=== PATIENT | female | born 1980 | race Caucasian/White ===

== ENCOUNTER 2018-03-17 09:30 | Outpatient (CLI) | payer OTHER ==
--- NOTE | 2018-03-17 11:12 | RAD ---
LUMBAR SPINE SIX VIEWS: 03/17/2018 HISTORY: Bilateral lower back pain with worsening recently. History of prior low back surgery. COMPARISON: No prior studies are available for comparison. FINDINGS: There are five [id number] lumbar type vertebral bodies. The vertebral body heights are within n ormal limits. However, there is loss of vertebral disk height at the L3-L4, L4-L5, and L5-S1 levels, with osteophytes seen anteriorly at these levels, as well as at the T12-L1 level. No fracture or jones bluxation is seen. There is straightening of the normal lumbar curvature. No abnormal translational motion is seen between the flexion and extension views of the lumbar spine. A T-shaped intrauterine contraceptive device is noted within the central pelvis. IMPRESSION: Multilevel degenerative changes of the lumbar spine. No fracture or subluxation is seen. POS: [facility]
== END 2018-03-17 09:31 | disposition home or self-care (01) ==
LOC: SCSRAD 09:30
PROVIDERS: ATTEND Family Medicine
DX: M54.5 Low back pain (principal); M47.896 Other spondylosis, lumbar region
CPT/HCPCS: 72100

== ENCOUNTER 2018-05-07 08:15 | Outpatient (CLI) | payer OTHER | END 2018-05-07 08:16 | disposition home or self-care (01) | LOC: CTENTCT 08:15 | PROVIDERS: ATTEND Specialist | DX: J01.00 Acute maxillary sinusitis, unspecified (principal) | CPT/HCPCS: 70486 ==

== ENCOUNTER 2018-05-20 12:51 | Day surgery (SDC) | payer OTHER ==
[2018-05-19 13:39] VITALS: BMI 38.4
[2018-05-20] MEDS ORDERED: Oxymetazoline HCl 0.05% ( 15 ML ) ONE ×2 (13:50→14:38)
[2018-05-20] MEDS ORDERED: Dexamethasone 20 MG/5 ML VIAL ONE (13:56)
[2018-05-20] MEDS ORDERED: Ondansetron PF 4 MG/2 ML Vial ONE (13:56)
[2018-05-20] MEDS ORDERED: PROPOFOL 200 MG/20 ML VIAL ONE (13:56)
[2018-05-20] MEDS ORDERED: Glycopyrrolate 0.2 MG/ML 5 ML SYRINGE ONE (13:56)
[2018-05-20] MEDS ORDERED: Midazolam HCl 2 mg/2 ml Vial ONE ×2 (13:57→14:43)
[2018-05-20 14:01] LABS: BHCG - Serum Negative (NEGATIVE); Pregs Control Background? CLEAR/WHITE (CLR/WHITE); Pregs Control Bar Appear? YES (CONTROL BAR)
[2018-05-20] MEDS ORDERED: Bacitracin Zinc Ointment 30 gm TUBE ONE (14:38)
[2018-05-20] MEDS ORDERED: Lidocaine 1% w/Epinephrine 1:100K 30 ML VIAL ONE (14:38)
[2018-05-20] MEDS ORDERED: Fentanyl 100 MCG/2 ML VIAL ONE ×2 (14:43→16:28)
[2018-05-20] MEDS ORDERED: Promethazine HCl 25 MG/ML VIAL ONE (16:57)
[2018-05-20] MEDS ORDERED: Sodium Chloride 0.9% 10 ML ONE (17:44)
--- NOTE | 2018-05-21 09:34 | OP ---
DATE OF PROCEDURE: 05/20/2018 SURGEON: Uriah Scott M.D. PREOPERATIVE DIAGNOSIS: Deviated septum, chronic sinusitis, hypertrophic inferior turbinates, facial pain. POSTOPERATIVE DIAGNOSIS: Deviated septum, chronic sinusitis, hypertrophic inferior turbinates, facia l pain. PROCEDURES: 1. Nasal endoscopy with frontal sinusotomy. 2. Bilateral nasal endoscopy with total ethmoidectomy. 3. Bilateral nasal endoscopy with maxillary antrostomy with removal of tissue. 4. Bilateral nasal endoscopy with sphenoidotomy. 5. Septoplasty and bilateral nasal endoscopy with submucosal resection of inferior turbinates. FINDINGS: Passage is very narrow in the left frontal region and a balloon was used to help facilitat e the dilatation and with frontal sinusotomy. PROCEDURE IN DETAIL: After consent was obtained, the patient was identified, brought to the operatin g room, and placed on the operating room table in the supine position. Consent was obtained, notifyi ng the patient of the possibility of additional infections, bleeding, brain injury, and eye/orbital i njury. The patient was placed on the operating room table, and general endotracheal anesthesia and intravenous access was obtained. The patient was then positioned, prepped and draped for endoscopic sinus surgery. Nasal preparation included trimming nasal vestibular hairs and spraying in topical Af rin. We then placed Afrin topical solution on nasal pledgets and strategically located them intranas ally. The perinasal mucosa was injected with 1% lidocaine with 1:100,000 epinephrine in the submucop erichondrial plane of the septum, lateral nasal wall, and anterior to the uncinate. The patient was then prepped and draped in a sterile fashion and positioned for endoscopic sinus surgery. Endoscopic Sinus Surgery: With the 0-degree endoscope, the patient underwent systematic nasal endosc opy. There were no suspicious internasal masses or lesions identified. We then focused our attentio n to the osteomeatal complex region under the middle turbinate. Maxillary Antrostomy: The uncinate was then identified and the extent of the uncinate was appreciated by out-fracturing the uncinate with the ball-tip probe. We then used the sickle blade to disarticulate the uncinate from the lateral nasal wall. This was then removed with straight biting and upbiting punches with the remaining shrouds of mucosa and bony septum removed with the micro-debr ider. The natural os of the maxillary sinus was then identified and enlarged with the maxillary punc hes and back biting forceps. At this point, we turned our attention to the contralateral side and pr oceeded. Total Ethmoidectomy: The anterior face of the ethmoid bulla was entered and with the micro-debrider, dissection continued posteriorly to the ground lamella. The limits of dissection included the inser tion of the middle turbinate, medial orbital wall, and base of skull. We similarly identified the fr ontal recess and removed shrouds of bone and debris in that region to obtain patency into the agger n asi region and frontal recess. We then entered the ground lamella and its anteroinferior aspect and proceeded posteriorly, opening the posterior ethmoid air-cell system. Again, the limits of dissectio n included the base of skull and medial orbital wall. At this point, we turned our attention to the contralateral side and proceeded. Sphenoidotomy: The anterior face of the sphenoid was identified and entered in its extreme anteroinf erior aspect. A sphenoid punch was then used to enlarge the sphenoidotomy and no injury to the optic nerve or internal carotid artery occurred. At this point, we turned our attention to the contralateral side and proceeded. Outfracture & Cautery of the Inferior Turbinates: The inferior turbinates were visualized with a 0-d egree endoscope and outfractured with a Mitra elevator. The inferior medial aspect was cauterized wi th the electrocautery. Hemostasis was obtained. After adequate airway was established, we turned our attention to the contralateral side and used a similar procedure. Again, a [place] elevator was used to outfracture inferior turbinates under endoscopic visualization. With a suction cautery, the free inferior medial aspect was cauterized under direct visualization along the length of the inferior tur binate. At this point, we turned our attention to the contralateral side and proceeded. Septoplasty: After local anesthesia was infiltrated into the submucoperichondrial plane, a standard Garza-Salinas Ii incision was made with a #15 blade down to the level of the septal cartilage. The caudal breanna vator was used to elevate the mucoperichondrium from the underlying cartilage. We then proceeded bey ond the bony cartilaginous junction and elevated the bony periosteum as well. Great attention was pa id to the spur to prevent rent formation in the septal flap. A transcartilaginous incision was then m marina, while preserving an adequate dorsal and caudal cartilaginous strut for tip support. The deforme d cartilage was removed and disarticulated from the bony cartilaginous junction and maxillary crest. This was placed in saline and would later be crushed and returned to the mucoperichondrial envelope. We then elevated the contralateral periosteum from the bony cartilaginous region and removed the de formed portions of the bone and bony spurs. The cartilage was then crushed and placed back into the mucoperichondrial envelope and the mucosa was re-approximated with a quilting stitch composed of rapi dly absorbent gut suture. The Garza-Sal[place] Ii incision was also closed with interrupted gut suture. At the completion of the case, Jaramillo splints were placed and suture secured to the caudal septum. At the completion of the case, Rice keel splints were placed in the ethmoid cavities after the ethmoi dectomy. There were no complications. The patient tolerated the procedure well and was discharged t o the recovery room in stable condition prior to return to the preoperative Day Stay with [facility]. Prescriptions for pain medication and antibiotics were provided. The patient received intramuscular Depo-Medrol during the case.
== END 2018-05-20 19:34 | disposition home or self-care (01) ==
LOC: SDC 12:51
PROVIDERS: ATTEND Specialist
PROC: 09BM8ZZ Excision of Nasal Septum, Via Natural or Artificial Opening Endoscopic (ICD-10-PCS; principal; 2018-05-20)
PROC: 0NBG4ZZ Excision of Left Ethmoid Bone, Percutaneous Endoscopic Approach (ICD-10-PCS; principal; 2018-05-20)
PROC: 0NBF4ZZ Excision of Right Ethmoid Bone, Percutaneous Endoscopic Approach (ICD-10-PCS; principal; 2018-05-20)
DX: J32.9 Chronic sinusitis, unspecified (principal); J30.9 Allergic rhinitis, unspecified; J34.2 Deviated nasal septum; J34.3 Hypertrophy of nasal turbinates
CPT/HCPCS: 84703; 85014; 96374; 96375; 96376; J1100; J2001; J2250; J2405; J2550; J2704; J3010